=== PATIENT | female | born 1975 | race Caucasian/White ===

== ENCOUNTER 2025-01-02 19:40 | Emergency (ER) | payer OTHER ==
[2025-01-02] MEDS ORDERED: Sodium Chloride 0.9% 10 ML Syringe FLUSH PRN (19:48)
[2025-01-02] MEDS: Ondansetron 4 MG/2 ML SDV IVPUSH ONE (20:03)
[2025-01-02 20:08] LABS: BASOPHILS ABSOLUTE AUTO 0.07 10^3/uL (0.00-0.10); BASOPHILS PERCENT AUTO 1.8 % (0.0-1.0); EOSINOPHILS ABSOLUTE AUTO 0.03 10^3/uL (0.10-0.30); EOSINOPHILS PERCENT AUTO 0.8 % (1.0-3.0); IMMATURE GRAN ABSOLUTE AUTO 0.11 10^3/uL (0.00-0.04); IMMATURE GRAN PERCENT AUTO 2.8 % (0.0-0.4); LYMPHOCYTES ABSOLUTE AUTO 1.29 10^3/uL (1.00-4.00); LYMPHOCYTES PERCENT AUTO 32.5 % (20.0-40.0); MEAN PLATELET VOLUME 8.5 fL (7.4-10.4); MONOCYTES ABSOLUTE AUTO 0.41 10^3/uL (0.10-0.80); MONOCYTES PERCENT AUTO 10.3 % (2.0-8.0); NEUTROPHILS ABSOLUTE AUTO 2.06 10^3/uL (2.50-7.00); NEUTROPHILS PERCENT AUTO 51.8 % (50.0-70.0); PLATELET COUNT,PLT 342 10^3/uL (150-400); RED BLOOD CELL COUNT 3.59 10^6/uL (3.80-5.50); RED CELL DISTRIBUTION WIDTH 14.2 % (11.5-14.5); WHITE BLOOD CELL COUNT,WBC 3.97 10^3/uL (5.00-10.00)
[2025-01-02 20:26] LABS: ALANINE AMINOTRANSFERASE,ALT 57 U/L (14-63); ASPARTATE AMNIOTRANSFERASE,AST 85 U/L (15-37); BILIRUBIN TOTAL 0.2 mg/dL (0.2-1.0); BLOOD UREA NITROGEN,BUN 5 mg/dL (7-18); CARBON DIOXIDE,CO2 28.6 mmol/L (21.0-32.0); CHLORIDE,CL 102 mmol/L (98-107); CREATININE 0.63 mg/dL (0.51-1.17); EST CRCL DRUG DOSING (CG) 87.31 mL/min; ESTIMATED GFR 110 mL/min (>=60); ETHANOL BLOOD MEDICAL < 3 mg/dL (<3); GLUCOSE RANDOM 102 mg/dL (70-140); POTASSIUM,K 3.5 mmol/L (3.5-5.1); PROTEIN TOTAL,TP 6.9 g/dL (6.4-8.2); SODIUM,NA 142 mmol/L (136-145)
[2025-01-02] MEDS: Ketorolac 30 MG/ML SDV IVPUSH ONE (20:30)
[2025-01-02 20:56] LABS: APPEARANCE,URINE TURBID (CLEAR); GLUCOSE,URINE NEGATIVE (NEGATIVE); OCCULT BLOOD,URINE LARGE (NEGATIVE)
[2025-01-02] MEDS: Iopamidol 755 Mg/ML 100 ML Bottle IV ONE (21:20)
[2025-01-02] MEDS: Ondansetron 4 MG Tab.DIS PO ONE (22:40)
== END 2025-01-02 22:40 | disposition home or self-care (01) ==
LOC: KA.ED 19:40
DX: S22.41XA Multiple fractures of ribs, right side, initial encounter for closed fracture (principal); R31.9 Hematuria, unspecified; D64.9 Anemia, unspecified; K21.9 Gastro-esophageal reflux disease without esophagitis; R11.2 Nausea with vomiting, unspecified; Z79.899 Other long term (current) drug therapy; Z86.16 Personal history of COVID-19; V47.5XXA Car driver injured in collision with fixed or stationary object in traffic accident, initial encounter
CPT/HCPCS: 36415; 71045; 71100-RT; 72170; 74177; 80053; 80307; 81001; 84484; 85025; 96361; 96374; 96375; 99284; 99285-25; A9270-GY; J1885; J2405; J7030; Q9967